=== PATIENT | female | born 2000 | race Caucasian/White ===

== ENCOUNTER 2024-07-27 20:49 | Emergency (ER) | payer MEDICAID, SELFPAY ==
[2024-07-27] VITALS (18 sets, daily range): BP systolic 94–170; BP diastolic 60–108; PULSE 86–113; TEMP 37.3; O2SAT 88–98; BMI 38.0
--- NOTE | 2024-07-27 20:51 | ECG_ITS ---
[facility] Test Date: 2024-07-27 Pat Name: BESSY MORTON Department: Room: - Gender: Female Supervisor Refining: : 2000 Requested By: [id number] Order Number: [id number] Reading MD: IDRIS HUTCHISON Measurements Intervals [place] Rate: 108 P: 61 [place]: 152 QRS: 41 QRSD: 100 T: 19 QT: 344 QTc: 407 Interpretive Statements 1120 Sinus tachycardia 24204 Cannot rule out inferior myocardial infarction with posterior extension, probably old 9150 abnormal ECG No previous ECG available for comparison Electronically Signed On 07-30-2024 8:11:31 EST by IDRIS HUTCHISON
--- NOTE | 2024-07-27 20:53 | CT_ITS ---
The [address] [address] Patient Name: BESSY MORTON MRN: [id number] date: 2000 Sex: F Assigned Patient Location: ER Current Patient Location: ER Accession/Order Number: [id number] Exam Date: 07/27/2024 22:15 Report Date: 07/27/2024 23:07 At the request of: LIONEL PICKETT Procedure: CT head/brain wo con EXAMINATION: CT head/brain wo con HISTORY: Altered mental status COMPARISON: CT head 07/07/2014 TECHNIQUE: Axial CT images were obtained without IV contrast. Dose reduction techniques were achieved by using automated exposure control and/or adjustment of mA and/or kV according to patient size and/or use of iterative reconstruction technique. FINDINGS: BRAIN: 1.5 cm fluid density cyst within the right thalamus. No edema, hemorrhage, mass, acute infarction, or inappropriate atrophy. CSF SPACES: No hydrocephalus, subarachnoid hemorrhage, or mass. Appropriate for age. SKULL: No fracture, mass, or other significant visible lesion. SINUSES: No significant mucosal thickening or fluid on the limited views. ORBITS: No appreciable abnormality on the limited views. OTHER: Negative CT/CT head/brain wo con IMPRESSION: 1. No intracranial hemorrhage or appreciable acute abnormality. 2. Within the right thalamus is 1.5 cm cyst of uncertain etiology (0.6 cm on 07/07/2014). No appreciable surrounding mass effect or midline shift suggesting this is chronic. Consider MRI for nonemergent follow-up. Electronically authenticated by: KYLE SOARES Date: 07/27/2024 23:07
--- NOTE | 2024-07-27 20:54 | ED_ITS ---
<Statement entered by Steven Pitt MD - 08/02/24 13:22> This documentation has been reviewed and approved. Patient signed out to me pending re-eval. Uneventful night sleeping. Signed out to Dr. Hoffman with repeat eval pending. HPI HPI - General Adult General Chief complaint: Psychiatric Symptoms Stated complaint: other Time Seen by Provider: 07/27/24 20:51 Source: patient and EMR Mode of arrival: ambulance History of Present Illness HPI narrative: Patient is a 24-year-old female brought to the emergency department by EMS after she was found by police on the side of the road operating her vehicle. History is extremely limited as the patient is uncooperative, tearful and agitated. EMS reports that the police were called because the patient was driving erratically with taillight out. Police pulled her over, she was tearful and agitated. She was incoherent and EMS was dispatched. Patient is tearful, uncooperative on arrival to the ER and does not provide any additional history. EMS contacted the patient's mother as the car was registered to her, patient apparently has no medical history. Related Data Allergies Allergy/AdvReac Type Severity Reaction Status Date / Time No Known Drug Allergies Allergy Verified 07/27/24 21:23 Opioid HPI Opioid Management Most Recent Opioid Data: No Data to Display Review of Systems ROS Status of ROS unobtainable due to mental status Exam Narrative Exam Narrative: Gen.: Awake, alert, tearful and agitated Head: Normocephalic, atraumatic ENT: Moist mucous membranes Respiratory: No respiratory distress, lungs clear bilaterally Cardio: Regular rate and rhythm Extremities: Moves extremities equally, no injuries noted Psych: Tearful, uncooperative Neuro: No focal neuro deficit Skin: Warm, dry, intact Constitutional Vital Signs, click to edit/add: Last Vital Signs Temp 99.2 F 07/27/24 20:53 Pulse 91 H 07/27/24 20:53 Resp 20 07/27/24 20:53 BP 170/108 H 07/27/24 20:53 Course Vital Signs Vital signs: Vital Signs Temperature 99.2 F 07/27/24 20:53 Pulse Rate 91 H 07/27/24 20:53 Respiratory Rate 20 07/27/24 20:53 Blood Pressure 170/108 H 07/27/24 20:53 Temperature 99.2 F 07/27/24 20:53 Pulse Rate 91 H 07/27/24 20:53 Respiratory Rate 20 07/27/24 20:53 Blood Pressure 170/108 H 07/27/24 20:53 Medical Decision Making MDM Narrative Medical decision making narrative: 2134: On arrival to the emergency department, patient was uncooperative, tearful and agitated. She did not however try to leave the emergency department. In order to safely obtain the patient's workup, she was given intramuscular Ativan, Geodon and Benadryl which she allowed. She is hemodynamically stable at this time. A psychiatric workup with head CT was ordered for the patient due to her clinical presentation. Case is turned over to attending physician at this time for further evaluation and treatment. SHARED APC VISIT, PHYSICIAN ATTESTATION: [id number] I performed a substantive part of the MDM during the patient?s E/M visit. I personally evaluated and examined the patient. I personally made or approved the documented management plan and acknowledge its risk of complications. Medical Records Medical records reviewed: Yes I reviewed the patient's medical records Lab Data Lab results reviewed: Yes I reviewed the patient's lab results Discharge Plan Discharge Chief Complaint: Psychiatric Symptoms Clinical Impression: Acute psychosis Patient Disposition: Still a Patient Print Language: Maldivian Referrals: Physician,Non-Staff, MD [Primary Care Provider] - 1 week
[2024-07-27] MEDS: WATER FOR INJECTION, STERILE 20 ML VIAL INJ (21:15)
[2024-07-27] MEDS: LORAZEPAM 2 MG/ML VIAL IM (21:15)
[2024-07-27] MEDS: ZIPRASIDONE MESYLATE 20 MG VIAL IM (21:15)
[2024-07-27] MEDS: DIPHENHYDRAMINE HCL 50 MG/ML VIAL 25 MG IM (21:15)
[2024-07-27 22:19] LABS: INR 1.06; Prothrombin Time 11.2 sec (9.0-11.6)
[2024-07-27 22:21] LABS: Basophils Percent Auto 0.4 % (0.2-2.0); Eosinophils Absolute Auto 0.1 10^3/uL (0.0-0.7); Eosinophils Percent Auto 0.7 % (0.9-7.0); Hematocrit 39.2 % (36.0-48.0); Hemoglobin 13.2 g/dL (12.0-16.0); Immature Granulocytes Abs Auto 0.02 10^3/uL (0.00-0.03); Immature Granulocytes Pct Auto 0.2 % (0.0-0.5); Lymphocytes Absolute Auto 2.1 10^3/uL (1.2-3.8); Lymphocytes Percent Auto 21.7 % (20.5-60.0); Mean Corpuscular HGB Conc 33.7 g/dL (29.9-35.2); Mean Corpuscular Hemoglobin 28.4 pg (26.7-34.0); Mean Corpuscular Volume 84.5 fL (81.0-99.0); Monocytes Absolute Auto 0.7 10^3/uL (0.3-0.8); Monocytes Percent Auto 7.3 % (1.7-12.0); Neutrophils Absolute Auto 6.7 10^3/uL (1.4-6.5); Neutrophils Percent Auto 69.7 % (43.0-75.0); Platelet Count 252 10^3/uL (150-450); Red Blood Count 4.64 10^6/uL (4.20-5.40); Red Cell Distribution Width 12.9 % (11.0-15.0); White Blood Count 9.6 10^3/uL (4.0-11.0)
[2024-07-27 22:23] LABS: HCG Qualitative NEGATIVE (NEGATIVE); Internal Control Within Normal Limits
[2024-07-27 22:34] LABS: Alanine Aminotransferase 39 U/L (14-59); Albumin Globulin Ratio 0.9; Albumin Level 3.6 g/dL (3.4-5.0); Alkaline Phosphatase 66 U/L (46-116); Anion Gap 16.4; Aspartate Amino Transferase 33 U/L (15-37); BUN Creatinine Ratio 7.2; Bilirubin Total 1.4 mg/dL (0.2-1.0); Calcium 9.3 mg/dL (8.5-10.1); Carbon Dioxide 23.8 mmol/L (21.0-32.0); Chloride 104 mmol/L (98-107); Estimated GFR (African America >60 (>=60 mL/min/1.73m^2); Estimated GFR (Non-African Ame >60 (>=60 mL/min/1.73m^2); Globulin 3.9 g/dL; Glucose 111 mg/dL (74-106); Potassium 3.2 mmol/L (3.5-5.1); Sodium 141 mmol/L (136-145); Total Protein 7.5 g/dL (6.4-8.2); Troponin I High Sensitivity 5.6 pg/mL (4.0-51.3)
[2024-07-27 22:36] LABS: Acetaminophen <2.0 ug/mL (10.0-30.0); Salicylate <2.8 mg/dL (<=19.9)
[2024-07-27 22:42] LABS: Lactate/Lactic Acid 2.2 mmol/L (0.4-2.0)
[2024-07-27 22:56] LABS: Ethanol <3 mg/dL
[2024-07-27 23:10] LABS: Thyroid Stimulating Hormone 0.604 uIU/mL (0.358-3.740)
[2024-07-28] VITALS (57 sets, daily range): BP systolic 89–144; BP diastolic 55–104; PULSE 52–125; O2SAT 90–100
[2024-07-28 02:20] LABS: Lactate/Lactic Acid 0.9 mmol/L (0.4-2.0)
--- NOTE | 2024-07-28 11:17 | ED_ITS ---
HPI - Psych General Chief Complaint: Psychiatric Symptoms Stated Complaint: other Time Seen by Provider: 07/27/24 20:51 Source: Reports patient and EMR Source comment: EMS patient will not answer any questions Mode of arrival: ambulance Limitations: Reports no limitations History of Present Illness HPI Narrative: 24-year-old female presented to the emergency department and was seen here and held overnight for observation. Please see the full history and physical exam. Related Data Allergies Allergy/AdvReac Type Severity Reaction Status Date / Time No Known Drug Allergies Allergy Verified 07/27/24 21:23 Exam Constitutional Vital Signs, click to edit/add: Last Vital Signs Temp 99.2 F 07/27/24 20:53 Pulse 125 H 07/28/24 08:53 Resp 18 07/28/24 08:53 BP 131/89 07/28/24 08:53 Pulse Ox 98 07/28/24 08:53 O2 Del Method Room Air 07/28/24 06:22 O2 Flow Rate 1.5 07/27/24 21:50 Course Vital Signs Vital signs: Vital Signs Temperature 99.2 F 07/27/24 20:53 Pulse Rate 91 H 07/27/24 20:53 Respiratory Rate 20 07/27/24 20:53 Blood Pressure 170/108 H 07/27/24 20:53 Temperature 99.2 F 07/27/24 20:53 Pulse Rate 125 H 07/28/24 08:53 Respiratory Rate 18 07/28/24 08:53 Blood Pressure 131/89 07/28/24 08:53 Pulse Oximetry 98 07/28/24 08:53 Oxygen Delivery Method Room Air 07/28/24 06:22 Oxygen Delivery Flow Rate 1.5 07/27/24 21:50 MDM - Psych MDM Narrative Medical decision making narrative: The patient had been medicated and slept most of the night. She is now awake and alert and oriented. We have had her speak to counseling services and they have cleared her for discharge home. Follow-up has been arranged. Differential Diagnosis Differential diagnosis: Likely acute psychosis, depression and acute anxiety Lab Data Attestation: I reviewed the patient's lab results. Labs: Lab Results 07/27/24 07/28/24 Range/Units 21:49 01:43 WBC 9.6 (4.0-11.0) 10^3/uL RBC 4.64 (4.20-5.40) 10^6/uL Hgb 13.2 (12.0-16.0) g/dL Hct 39.2 (36.0-48.0) % MCV 84.5 (81.0-99.0) fL MCH 28.4 (26.7-34.0) pg MCHC 33.7 (29.9-35.2) g/dL RDW 12.9 (11.0-15.0) % Plt Count 252 (150-450) 10^3/uL MPV 12.0 (9.5-13.5) fL Neut % (Auto) 69.7 (43.0-75.0) % Lymph % (Auto) 21.7 (20.5-60.0) % Wake % (Auto) 7.3 (1.7-12.0) % Eos % (Auto) 0.7 L (0.9-7.0) % Baso % (Auto) 0.4 (0.2-2.0) % Neut # (Auto) 6.7 H (1.4-6.5) 10^3/uL Lymph # (Auto) 2.1 (1.2-3.8) 10^3/uL Wake # (Auto) 0.7 (0.3-0.8) 10^3/uL Eos # (Auto) 0.1 (0.0-0.7) 10^3/uL Baso # (Auto) 0.0 (0.0-0.1) 10^3/uL Abs Immat Gran (auto) 0.02 (0.00-0.03) 10^3/uL Imm/Tot Granulo (auto) 0.2 (0.0-0.5) % PT 11.2 (9.0-11.6) sec INR 1.06 Sodium 141 (136-145) mmol/L Potassium 3.2 L (3.5-5.1) mmol/L Chloride 104 (98-107) mmol/L Carbon Dioxide 23.8 (21.0-32.0) mmol/L Anion Gap 16.4 BUN 7.0 (7.0-18.0) mg/dL Creatinine 0.97 (0.55-1.02) mg/dL Est GFR ( Amer) >60 (>=60 mL/min/1.73m^2) Est GFR (Non-Af Amer) >60 (>=60 mL/min/1.73m^2) BUN/Creatinine Ratio 7.2 Glucose 111 H (74-106) mg/dL Lactate 2.2 H* 0.9 (0.4-2.0) mmol/L Calcium 9.3 (8.5-10.1) mg/dL Total Bilirubin 1.4 H (0.2-1.0) mg/dL AST 33 (15-37) U/L ALT 39 (14-59) U/L Alkaline Phosphatase 66 (46-116) U/L Troponin I High Sens 5.6 (4.0-51.3) pg/mL Total Protein 7.5 (6.4-8.2) g/dL Albumin 3.6 (3.4-5.0) g/dL Globulin 3.9 g/dL Albumin/Globulin Ratio 0.9 TSH 0.604 (0.358-3.740) uIU/mL Serum HCG, Qual Negative (NEGATIVE) Salicylates <2.8 (<=19.9) mg/dL Acetaminophen <2.0 L (10.0-30.0) ug/mL Ethanol Quant <3 mg/dL Imaging Data CT scan - head: Radiologist's impression: ITS Impressions Head CT 07/27/24 20:53 IMPRESSION: 1. No intracranial hemorrhage or appreciable acute abnormality. 2. Within the right thalamus is 1.5 cm cyst of uncertain etiology (0.6 cm on 07/07/2014). No appreciable surrounding mass effect or midline shift suggesting this is chronic. Consider MRI for nonemergent follow-up. Electronically authenticated by: KYLE SOARES Date: 07/27/2024 23:07 Discharge Plan Discharge Chief Complaint: Psychiatric Symptoms Clinical Impression: Acute psychosis Patient Disposition: Home, Self-Care Time of Disposition Decision: 11:17 Condition: Good Mode of Transportation: Private Vehicle Print Language: Citizen Of [place] Instructions: Brief Psychotic Disorder (ED) Referrals: Physician,Non-Staff, MD [Primary Care Provider] - 1 week
== END 2024-07-28 11:57 | disposition home or self-care (01) ==
PROVIDERS: Physician Assistant; Emergency Provider Emergency Medicine
DX: F23 Brief psychotic disorder (principal); R45.1 Restlessness and agitation; G93.0 Cerebral cysts
CPT/HCPCS: 36415; 70450; 80053; 80179; 80307; 80320; 80329; 83605; 84443; 84484; 84703; 85025; 85610; 93005; 96372; 99285; J1200; J2060; J3486